=== PATIENT | female | born 1975 | race Asian ===

== ENCOUNTER 2017-10-31 16:42 | Outpatient (CLI) | payer OTHER | END 2017-10-31 19:50 | disposition home or self-care (01) | LOC: OBT 16:42 → L-D 16:45 → OBT 19:50 | DX: O62.9 Abnormality of forces of labor, unspecified (principal); O09.523 Supervision of elderly multigravida, third trimester; Z3A.35 35 weeks gestation of pregnancy | CPT/HCPCS: 76818 ==